=== PATIENT | male | born 1945 | race Caucasian/White ===

== ENCOUNTER 2017-07-28 10:29 | Day surgery (SDC) | payer MEDICARE, OTHER ==
[~2017-07-28 10:29] MED LIST: ACETAMINOPHEN 1,000 MG/100 ML BTL IV ONE; CEFAZOLIN 2 Gram 2 GM/50 ML BAG IVPB ONE
[2017-07-28] MEDS ORDERED: FENTANYL PF 100MCG/2ML VIAL IV ONE (10:30)
[2017-07-28] MEDS ORDERED: EPINEPHRINE 1 MG/ML AMPUL SQ ONE (10:30)
[2017-07-28] MEDS ORDERED: MIDAZOLAM HCL 2MG/2ML VIAL IV ONE (10:30)
[2017-07-28] MEDS ORDERED: DEXAMETHASONE 4 MG/ML 1ML VIAL IVP ONE (10:30)
[2017-07-28] MEDS ORDERED: ROPIVACAINE HCL (NAROPIN) /PF 5MG/ML 20ML VIAL IV ONE (10:30)
[2017-07-28] MEDS ORDERED: ONDANSETRON HCL IV 4 MG/2 ML VIAL IVP ONE (10:30)
[2017-07-28] MEDS ORDERED: LIDOCAINE 2% MDV (20MG/ML) 20ML VIAL IV ONE (10:30)
[2017-07-28] MEDS ORDERED: PROPOFOL 10 MG/ML VIAL IV ONE (10:30)
[2017-07-28] MEDS ORDERED: KETOROLAC 30 MG/ML VIAL IVP ONE (10:30)
[2017-07-28] MEDS ORDERED: METOCLOPRAMIDE HCL 10 MG/2 ML VIAL IVP ONE (10:30)
--- NOTE | 2017-07-29 16:45 | Operative Note ---
DATE OF SURGERY: 07/28/2017. PREOPERATIVE DIAGNOSES: 1. LEFT SHOULDER ROTATOR CUFF TEAR. 2. AC JOINT ARTHROSIS. POSTOPERATIVE DIAGNOSES: 1. LEFT SHOULDER ROTATOR CUFF TEAR. 2. AC JOINT ARTHROSIS. OPERATION: 1. DIAGNOSTIC ARTHROSCOPY. 2. ARTHROSCOPIC ACROMIOPLASTY WITH SUBACROMIAL DECOMPRESSION. 3. ARTHROSCOPIC EXCISION OF THE DISTAL CLAVICLE AND AC . 4. ARTHROSCOPIC ROTATOR CUFF REPAIR. SURGEON: TERESE SAN M.D. ANESTHESIA: GENERAL ENDOTRACHEAL, LEAD MAN OVER ALL DIES IN PATTERN SHOP. COMPLICATIONS: NONE. ESTIMATED BLOOD LOSS: MINIMAL. OPERATIVE FINDINGS: A medium full-thickness tear in the supraspinatus tendon. AC joint arthrosis. COMPONENTS PLACED: A [employer] 5.5 mm Regenesorb anchor with two #2 Ultrabraid sutures and a transfixed lateral anchor loaded with a medial suture limb sets and a suture bridge configuration. INDICATION FOR OPERATION: A 72-year-old male with persistent pain and dysfunction in his shoulder for several years. I did his right shoulder rotator cuff repair years ago and now scheduled for the left. After ultrasound showed high-grade partial if not full-thickness tear. I explained the risks and benefits of surgery in detail for the diagnosis and procedures including but not limited to infection, nerve injury, vessel injury, persistent pain, stiffness, numbness and tingling in his shoulder, retear of the rotator cuff, and the need for further procedures. All of his questions were answered. Treatment and course were outlined and he agreed to proceed. PROCEDURE: The patient brought to the O.R. and placed in the beach chair position, and prepared for surgery. General endotracheal anesthesia induced and the left upper extremity and shoulder were prepped and draped in sterile fashion. The left shoulder was prepped again with ChloraPrep and draped. Intraoperative time-out was performed. Next, a preoperative examination revealed full shoulder range of motion with no shoulder instability. Next, the shoulder, subacromial space, and AC joint were injected with 0.5% Marcaine with Epinephrine. Standard posterior arthroscopic portal was established with two incisions anterior 1.0 cm posterolateral to the acromion. An anterior portal was established with the rotator under direct visualization, and diagnostic arthroscopy was performed. The biceps tendon was normal. The biceps anchor, anterior and superior labrum were normal. The posterosuperior labrum was normal. Axial recess was normal. Posteroinferior labrum was normal. The glenohumeral head and articular cartilage were normal. Undersurface of the rotator cuff was thoroughly inspected. There was a tensile failure here likely corresponding to the ultrasound findings of the high-grade bursal tear and likely basically was a complete tear. Certainly ____ probe could be penetrated easily through this articular striated tensile failure into the subacromial space. We debrided that medially with a shaver to the articular margin bone surface. Next, anterior and posterior subacromial portals were established. I inserted the blade in the anterior subacromial portal, and subacromial resection was performed. I outlined the anterolateral acromion and coracoacromial ligament and completely, opened up the inferior AC joint capsule. Next, the lateral portal was established off the posterior margin of the AC joint. A 5.5 mm bur inserted and took out from lateral to medial, anterior and posterior for type II acromion to a plantar surface using a rasp to smooth the subacromial surface and we verified it was flat with the probe in the posterior portal. Next, the bur was inserted in the anterior portal and I burred down the medial acromial facet. Resected 1 cm and made small stab incision superior to the AC joint. I inserted the shaver in there and smoothed both bony surface so as to verify the AC joint completely free of any bony impingement and bony fragments. Next, resected the bursa around the periphery of the rotator cuff and bursal surfaces thoroughly inspected that and there was an obvious full-thickness tear here, about medium size, in the supraspinatus tendon with some retraction almost to the midportion of the humeral head. I established an accessory anterior lateral portal, inserted the shaver there, and debrided again the greater tuberosity lightly around the greater edge to bleeding bone surface preference for repair. Planned on using a single medial anchor and lateral anchor suture bridge -type construct. Through the medial anchor using a spinal needle off the acromial edge, inserted the punch tap anchor surface of the bone. Next, passed one mm size suture medial to the anterior edge about 2 cm, which covers the tear site with two horizontal mattress sutures. I tied those down over the top using a towel line hit slide and lock knot backed up to reverse it down rows. We saved those limbs then punched a hole over the greater tuberosity of its very edge and then inserted the transfix and then brought the sutures out, cut them flush, load them on the transfix anchor, and guide the eyelet in the hole, engaged the anchor to the hole, and then tapped it and tightened the anchor securely. This tucked down the cuff edge nicely, reproduced its footprint. The sutures were cut flushed. Probed the repair stable and secure. Directly visualized the intra-articular again footprint nicely re-established. This completed our procedures. Scope and equipment were removed. The was covered with Xeroform gauze. Injected with 0.5% Marcaine with Epinephrine and Exparel. Sterile dressing was applied and UltraSling and ice cooler. The patient tolerated the procedure well. No intraoperative complications. All sponge, needle, and blade counts correct. Recovery room stable, neurovascularly intact. She will be discharged as an outpatient. Have home PT and nurse with [facility] and follow-up in two weeks. cc: Dr. Doug Gomez JOB NUMBER: [id number] [facility]
== END 2017-07-28 16:00 | disposition home or self-care (01) ==
LOC: SUR 10:29
PROVIDERS: ATTEND Orthopaedic Surgery
DX: M75.102 Unspecified rotator cuff tear or rupture of left shoulder, not specified as traumatic (principal); M19.212 Secondary osteoarthritis, left shoulder; I10 Essential (primary) hypertension
CPT/HCPCS: 29805; 29826; 29827; 29824; 01630; J1885; J2405; J3010; J0690; J2795; C1713; J0171; J2765